=== PATIENT | male | born 2000 | race Hispanic/Latino ===

== ENCOUNTER 2024-11-19 16:26 | Emergency (ER) | payer OTHER ==
[2024-11-19] MEDS ORDERED: Boostrix 0.5 ML (Tdap) VIAL (>/=7 yrs of age) ONE (18:05)
[2024-11-19] MEDS ORDERED: Acetaminophen 500 MG TAB ONE (18:05)
[2024-11-19] MEDS ORDERED: Lidocaine 1% w/Epinephrine 1:100K 20 ML VIAL ONE (18:05)
== END 2024-11-19 20:39 ==
LOC: ERS 16:26 → EEVIPCON 16:26 → ERS 20:39
DX: S05.32XA Ocular laceration without prolapse or loss of intraocular tissue, left eye, initial encounter (principal); Z23 Encounter for immunization; Y04.0XXA Assault by unarmed brawl or fight, initial encounter
CPT/HCPCS: 70450; 70486; 90471; 90715